=== PATIENT | male | born 1950 | race Caucasian/White ===

== ENCOUNTER 2017-02-20 17:08 | Observation (INO) | payer MEDICAID, SELFPAY | END 2017-02-21 13:02 | disposition home or self-care (01) | PROVIDERS: Admitting Provider Emergency Medicine; Emergency Provider Emergency Medicine; Visit Provider Internal Medicine Adolescent Medicine | DX: J18.9 Pneumonia, unspecified organism (principal); J44.9 Chronic obstructive pulmonary disease, unspecified; I10 Essential (primary) hypertension; Z72.0 Tobacco use; Z21 Asymptomatic human immunodeficiency virus [HIV] infection status | CPT/HCPCS: 36415; 71020; 80053; 82550; 82553; 83605; 84484; 85025; 87040; 87486; 87581; 87633; 87798; 93005; 94640; 94760; 96365; 96375; 99285; G0378; J1956 ==